=== PATIENT | male | born 1995 | race Caucasian/White ===

== ENCOUNTER 2020-04-11 23:21 | Emergency (ER) | payer OTHER ==
[~2020-04-11] VITALS: Ht 177.8 cm; Wt 110.3 kg
[2020-04-11 23:35] VITALS: Ht 177.8 cm; Wt 110.3 kg
[2020-04-12 00:44] VITALS: BP 139/85
== END 2020-04-12 01:10 | disposition home or self-care (01) ==
LOC: ED 23:21
DX: F41.9 Anxiety disorder, unspecified (principal); F17.210 Nicotine dependence, cigarettes, uncomplicated; Z88.8 Allergy status to other drugs, medicaments and biological substances
CPT/HCPCS: 99406